=== PATIENT | female | born 1935 | race Caucasian/White ===

== ENCOUNTER → 2019-06-25 09:38 | Outpatient (BNVA) | payer MEDICARE, MEDICAID, SELFPAY | PROVIDERS: Family Provider Family Medicine; PCP Family Medicine; Visit Provider Family Medicine | DX: E87.1 Hypo-osmolality and hyponatremia (principal) | CPT/HCPCS: 80048 ==

== ENCOUNTER → 2019-07-01 09:32 | Outpatient (BNVA) | payer MEDICARE, MEDICAID, SELFPAY | PROVIDERS: Family Provider Family Medicine; PCP Family Medicine; Visit Provider Family Medicine | DX: E87.1 Hypo-osmolality and hyponatremia (principal) | CPT/HCPCS: 80048 ==

== ENCOUNTER → 2019-11-25 08:30 | Outpatient (BNVA) | payer MEDICARE, MEDICAID, SELFPAY | PROVIDERS: Family Provider Family Medicine; PCP Family Medicine; Visit Provider Family Medicine | DX: Z12.31 Encounter for screening mammogram for malignant neoplasm of breast (principal); E11.9 Type 2 diabetes mellitus without complications; E78.5 Hyperlipidemia, unspecified | CPT/HCPCS: 80053; 80061; 83036; 85025 ==

== ENCOUNTER → 2020-04-30 11:24 | Outpatient (BNVA) | payer MEDICARE, MEDICAID, SELFPAY | PROVIDERS: Family Provider Family Medicine; PCP Family Medicine; Visit Provider Family Medicine | DX: E11.9 Type 2 diabetes mellitus without complications (principal) | CPT/HCPCS: 80053; 80061; 83036; 85025 ==

== ENCOUNTER → 2020-08-06 09:24 | Outpatient (BNVA) | payer MEDICARE, MEDICAID, SELFPAY | PROVIDERS: Family Provider Family Medicine; PCP Family Medicine; Visit Provider Family Medicine | DX: E11.9 Type 2 diabetes mellitus without complications (principal) | CPT/HCPCS: 80053; 80061; 83036; 85025 ==

== ENCOUNTER → 2020-11-03 09:31 | Outpatient (BNVA) | payer MEDICARE, MEDICAID, SELFPAY | PROVIDERS: Family Provider Family Medicine; PCP Family Medicine; Visit Provider Family Medicine | DX: E11.9 Type 2 diabetes mellitus without complications (principal); I10 Essential (primary) hypertension | CPT/HCPCS: 80053; 80061; 83036; 85025 ==

== ENCOUNTER → 2021-05-05 08:30 | Outpatient (BNVA) | payer MEDICARE, MEDICAID, SELFPAY | PROVIDERS: Family Provider Family Medicine; PCP Family Medicine; Visit Provider Family Medicine | DX: I10 Essential (primary) hypertension (principal); E11.9 Type 2 diabetes mellitus without complications; E78.2 Mixed hyperlipidemia | CPT/HCPCS: 80053; 80061; 83036; 85025 ==

== ENCOUNTER → 2021-08-09 08:27 | Outpatient (BNVA) | payer MEDICARE, MEDICAID, SELFPAY | PROVIDERS: Family Provider Family Medicine; PCP Family Medicine; Visit Provider Family Medicine | DX: E11.9 Type 2 diabetes mellitus without complications (principal); E78.5 Hyperlipidemia, unspecified; I10 Essential (primary) hypertension | CPT/HCPCS: 80053; 80061; 83036; 85025 ==

== ENCOUNTER → 2022-02-08 08:35 | Outpatient (BNVA) | payer MEDICARE, MEDICAID, SELFPAY | PROVIDERS: Family Provider Family Medicine; PCP Family Medicine; Visit Provider Family Medicine | DX: E78.5 Hyperlipidemia, unspecified (principal); I10 Essential (primary) hypertension; E11.9 Type 2 diabetes mellitus without complications | CPT/HCPCS: 80053; 80061; 83036; 84443; 85025 ==

== ENCOUNTER → 2022-02-16 11:40 | Outpatient (BNVA) | payer MEDICARE, MEDICAID, SELFPAY | PROVIDERS: Family Provider Family Medicine; PCP Family Medicine; Visit Provider Family Medicine | DX: E78.2 Mixed hyperlipidemia (principal); I10 Essential (primary) hypertension; E11.9 Type 2 diabetes mellitus without complications; R89.9 Unspecified abnormal finding in specimens from other organs, systems and tissues; R79.89 Other specified abnormal findings of blood chemistry | CPT/HCPCS: 84439; 84443; 84481 ==

== ENCOUNTER → 2022-08-04 09:00 | Outpatient (BNVA) | payer MEDICARE, MEDICAID, SELFPAY | PROVIDERS: Family Provider Family Medicine; PCP Family Medicine; Visit Provider Family Medicine | DX: I10 Essential (primary) hypertension (principal); E11.9 Type 2 diabetes mellitus without complications; E78.5 Hyperlipidemia, unspecified; R89.9 Unspecified abnormal finding in specimens from other organs, systems and tissues | CPT/HCPCS: 80048; 80061; 83036; 84443; 85025 ==

== ENCOUNTER 2022-11-01 21:27 | Emergency (ER) | payer MEDICARE, MEDICAID, SELFPAY ==
[2022-11-01 21:27] VITALS: BMI 23.3
[2022-11-01 21:31] VITALS: BP 168/84; PULSE 85; RESP 16; TEMP 37.1; O2SAT 98
--- NOTE | 2022-11-01 21:32 | XRR_ITS ---
PROCEDURE INFORMATION: Exam: XR Left Humerus Exam date and time: 11/01/2022 9:37 PM Age: 87 years old Clinical indication: Injury or trauma; Fall; Blunt trauma (contusions or hematomas); Arm, upper; Patient HX: Patient tripped walking upstairs at home and fell. C/O of left arm pain. Arm in makshift sling via EMS. TECHNIQUE: Imaging protocol: Radiologic exam of the left humerus. Views: 2 or more views. COMPARISON: No relevant prior studies available. FINDINGS: Bones/joints: Proximal to mid humerus shows a moderately displaced acute spiral fracture. Diffuse osteopenia. Moderate left shoulder DJD. On the internal rotation view the fracture shows [id number] angulation. Soft tissues: Left upper arm prominent soft tissue swelling. XR/[place] [id number] IMPRESSION: Severe left proximal humeral fracture.
--- NOTE | 2022-11-01 21:32 | CTR_ITS ---
PROCEDURE INFORMATION: Exam: CT Maxillofacial Without Contrast Exam date and time: 11/01/2022 9:42 PM Age: 87 years old Clinical indication: Injury or trauma; Fall; Blunt trauma (contusions or hematomas); Cheek bone; Left TECHNIQUE: Imaging protocol: Computed tomography of the face without contrast. Radiation optimization: All CT scans at this facility use at least one of these dose optimization techniques: automated exposure control; mA and/or kV adjustment per patient size (includes targeted exams where dose is matched to clinical indication); or iterative reconstruction. REPORTING DATA: Count of CT and Cardiac NM exams in prior 12 months: This patient has received 0 known CTs and 0 known cardiac nuclear medicine studies in the 12 months prior to the current study. COMPARISON: CT head wo con* [id number] 11/01/2022 9:39 PM RADIATION DOSE METRICS: Total DLP (mGy-cm): 543 FINDINGS: Orbital cavities: Orbits and globes are unremarkable. Bones/joints: Diffuse osteopenia. No fracture noted. Moderate upper cervical degenerative change. Paranasal sinuses: No significant sinus disease is apparent. Soft tissues: Left cheek injury visualized. Left cheek hematoma measures about 3.5 cm. Vasculature: Advanced diffuse vascular calcification noted. CT/CT facial bones wo con* [id number] IMPRESSION: 1. Left cheek injuries with 3.5 cm hematoma. 2. No definite acute fracture.
--- NOTE | 2022-11-01 21:32 | CTR_ITS ---
PROCEDURE INFORMATION: Exam: CT Head Without Contrast Exam date and time: 11/01/2022 9:39 PM Age: 87 years old Clinical indication: Injury or trauma; Fall; Blunt trauma (contusions or hematomas) TECHNIQUE: Imaging protocol: Computed tomography of the head without contrast. Radiation optimization: All CT scans at this facility use at least one of these dose optimization techniques: automated exposure control; mA and/or kV adjustment per patient size (includes targeted exams where dose is matched to clinical indication); or iterative reconstruction. REPORTING DATA: Count of CT and Cardiac NM exams in prior 12 months: This patient has received 0 known CTs and 0 known cardiac nuclear medicine studies in the 12 months prior to the current study. COMPARISON: No relevant prior studies available. RADIATION DOSE METRICS: Total DLP (mGy-cm): 1011 FINDINGS: Brain: No focal hemorrhage or midline shift is identified. The ventricles and parenchyma show moderate atrophy and chronic bicerebral white matter ischemic change. Cerebral ventricles: No ventriculomegaly or evidence of hydrocephalus. Paranasal sinuses: No evidence of acute sinusitis. Mastoid air cells: Visualized mastoid air cells are well aerated. Bones/joints: No displaced skull fracture is noted. Soft tissues: Left cheek injuries, see same day face CT. Vasculature: Diffuse vascular calcifications are present. CT/CT head wo con* [id number] IMPRESSION: 1. No acute intracranial abnormality. 2. Moderate age-related changes.
--- NOTE | 2022-11-01 21:32 | XRR_ITS ---
PROCEDURE INFORMATION: Exam: XR Left Shoulder Exam date and time: 11/01/2022 9:37 PM Age: 87 years old Clinical indication: Injury or trauma; Fall; Blunt trauma (contusions or hematomas); Shoulder; Patient HX: Patient tripped walking upstairs at home and fell. C/O of left arm pain. Arm in makshift sling via EMS. TECHNIQUE: Imaging protocol: Radiologic exam of the left shoulder. Views: 2 or more views. COMPARISON: No relevant prior studies available. FINDINGS: Bones/joints: Proximal to mid humerus shows a moderately displaced acute spiral fracture. Diffuse osteopenia. Moderate left shoulder DJD. Soft tissues: Left upper arm prominent soft tissue swelling. XR/XR shoulder LT min 2V* [id number] IMPRESSION: Severe left proximal humeral fracture.
--- NOTE | 2022-11-01 21:33 | ED_ITS ---
HPI - Fall General: Chief Complaint: Fall Stated Complaint: FALL Time Seen by Provider: 11/01/22 21:29 Source: patient and EMS Mode of arrival: EMS Limitations: no limitations History of Present Illness: 87-year-old female states that she had tripped and fell while walking tonight she had landed on her left side states she hit the left side of her face does have some facial pain mild headache her main pain is in her left humerus though she believes she may have broke her arm she denies any other injuries denies any neck pain. Associated symptoms-after fall: Reports headache(s); Denies abdominal pain, chest pain or neck pain Review of Systems Const: Denies: fever(s) or chills Eyes: Denies: blurry vision or eye discomfort ENMT: Denies: throat pain or dental pain Card: Denies: chest pain Resp: Denies: dyspnea GI: Denies: abdominal pain, nausea, vomiting or diarrhea Musc: Reports: extremity pain; Denies: neck pain or back pain Skin/Breast: Denies: rash Neuro: Reports: headache(s) PFS ED PFSH: Medical History Diabetes Hyperlipidemia Hypertension Social History Smoking and tobacco status: never smoked Second hand smoke exposure: No Alcohol intake: never Substance/Drug Use: never Caregiver/support person: Yes (family) Lives independently: Yes Household members: none Housing: House Marital status: / service: No Current occupational status: retired Current gender identity: Female Special jeremiah needs: No Agree to transfusion: Yes Physical Exam Const: COMMON NORMALS: no acute distress, patient oriented x3 and healthy appearing HENMT: COMMON NORMALS: normocephalic HEAD & SCALP: normocephalic OTHER: left sided contusion to face Eye: COMMON NORMALS: Equal, round and reactive pupils present and conjunctivae normal CONJUNCTIVA: Yes conjunctivae normal PUPIL: Yes Equal, round and reactive pupils present Neck/C-Spine: COMMON NORMALS: full ROM and supple CERVICAL SPINE: Yes cervical ROM normal, No pain with cervical ROM and No Cervical spine tenderness Chest: COMMONS NORMALS: normal inspection of the chest and normal palpation of entire chest wall Resp: COMMON NORMALS: normal respiratory effort, No retractions, No use of accessory muscles and clear to auscultation bilaterally AUSCULTATION: clear to auscultation bilaterally Cardio: COMMON NORMALS: regular rate, regular rhythm and No murmurs present (Cardio) RATE: regular rate RHYTHM: regular rhythm GI: COMMON NORMALS: Normal to inspection, nondistended, normoactive bowel sounds present, Soft to palpation, non-tender and no masses PALPATION: Yes Soft to palpation Extremity: NARRATIVE EXTREMITY EXAM: Tenderness to left proximal humerus Neuro: COMMON NORMALS: patient oriented x3, moves all extremities and no focal motor deficits Psych: COMMON NORMALS: mental status grossly normal, Normal thought process present and cooperative THOUGHT PROCESS: Normal thought process present Skin: COMMON NORMALS: no rashes or lesions noted and no wounds GENERAL SKIN EXAM: no rashes or lesions noted Course Vital Signs: Vital signs: Vital Signs Temperature 98.7 F 11/01/22 21:31 Pulse Rate 85 11/01/22 21:31 Respiratory Rate 16 11/01/22 21:31 Blood Pressure 168/84 11/01/22 21:31 Pulse Oximetry 98 11/01/22 21:31 Oxygen Delivery Me thod Room Air 11/01/22 21:31 MDM - Fall Medical Decision Making Patient presents here with a left humerus fracture that I interpreted from the x-ray did speak to orthopedics we will place her in a sling get her follow-up orthopedic she has no signs of any neck injury head and facial CTs are normal she is stable for discharge. Medical Records I reviewed the patient's medical records. Lab Data Radiology Impressions Face CT 11/01/22 21:32 IMPRESSION: 1. Left cheek injuries with 3.5 cm hematoma. 2. No definite acute fracture. Head CT 11/01/22 21:32 IMPRESSION: 1. No acute intracranial abnormality. 2. Moderate age-related changes. Humerus X-Ray 11/01/22 21:32 IMPRESSION: Severe left proximal humeral fracture. Shoulder X-Ray 11/01/22 21:32 IMPRESSION: Severe left proximal humeral fracture. Discharge Plan Discharge Patient Disposition: Home Clinical Impression: Closed left humeral fracture Qualifiers: Encounter type: initial encounter Humerus Location: proximal Fracture alignment: displaced Condition: Stable Prescriptions: New hydrocodone-acetaminophen 5-325 mg tablet 1 tab PO Q6H PRN (Reason: pain) Qty: 14 0RF No Action acetaminophen 325 mg tablet 650 mg PO BID PRN irbesartan 300 mg tablet 300 mg PO DAILY Qty: 90 3RF metformin 500 mg tablet See Rx Instructions .ROUTE .COMPLEX Qty: 270 3RF Dose Instruction: TAKE ONE TABLET BY MOUTH THREE TIMES DAILY Rx Instructions: TAKE ONE TABLET BY MOUTH THREE TIMES DAILY ezetimibe [Zetia] 10 mg tablet 10 mg PO DAILY Qty: 90 3RF glipizide 10 mg tablet See Rx Instructions .ROUTE .COMPLEX Qty: 360 3RF Dose Instruction: TAKE TWO TABLETS BY MOUTH TWICE DAILY Rx Instructions: TAKE TWO TABLETS BY MOUTH TWICE DAILY hydrochlorothiazide 25 mg tablet See Rx Instructions .ROUTE .COMPLEX Qty: 90 3RF Dose Instruction: TAKE ONE TABLET BY MOUTH IN THE MORNING Rx Instructions: TAKE ONE TABLET BY MOUTH IN THE MORNING (DME) Truetest Test Strips Strip See Rx Instructions .ROUTE .MEDSUPPLY Qty: 100 4RF Rx Instructions: As directed Discharge Orders: Discharge ED (Routine); Ordered 11/01/22 Ordered By: Simone Todd Referrals: Danielle Aguilar MD [Physician] - 1-3 days Lizbeth Reilly MD [Primary Care Provider] - Discharge Diet: Advance as tolerated Discharge Activity: Resume usual activity Patient Instructions: Arm Fracture in Adults (ED), How to Use a Sling (ED), Opioid Safety Coding Level of Care Code ED Senior Marketing Associate for Belle Aguilar
[2022-11-01 22:30] VITALS: BP 172/85; PULSE 86; RESP 18; O2SAT 98
== END 2022-11-01 22:31 | disposition home or self-care (01) ==
PROVIDERS: Emergency Provider Emergency Medicine; Family Provider Family Medicine; PCP Family Medicine
DX: S42.202A Unspecified fracture of upper end of left humerus, initial encounter for closed fracture (principal); Z79.84 Long term (current) use of oral hypoglycemic drugs; E11.9 Type 2 diabetes mellitus without complications; E78.5 Hyperlipidemia, unspecified; I10 Essential (primary) hypertension; W01.0XXA Fall on same level from slipping, tripping and stumbling without subsequent striking against object, initial encounter
CPT/HCPCS: 70450; 70486; 73030; 73060; 99284

== ENCOUNTER 2022-11-02 15:18 | Outpatient (CLI) | payer MEDICARE, MEDICAID, SELFPAY | END 2022-11-02 15:19 | disposition home or self-care (01) | PROVIDERS: Family Provider Family Medicine; PCP Family Medicine; Visit Provider Specialist | DX: S42.302A Unspecified fracture of shaft of humerus, left arm, initial encounter for closed fracture (principal); W10.9XXA Fall (on) (from) unspecified stairs and steps, initial encounter; Z46.89 Encounter for fitting and adjustment of other specified devices | CPT/HCPCS: 24530; 97760; 99204; L3980 ==

== ENCOUNTER → 2022-11-23 08:45 | Outpatient (BNVA) | payer MEDICARE, MEDICAID, SELFPAY | PROVIDERS: Family Provider Family Medicine; PCP Family Medicine; Visit Provider Specialist | DX: S42.302A Unspecified fracture of shaft of humerus, left arm, initial encounter for closed fracture (principal); X58.XXXA Exposure to other specified factors, initial encounter | CPT/HCPCS: 73060; 99024 ==

== ENCOUNTER → 2022-12-21 10:47 | Outpatient (BNVA) | payer MEDICARE, MEDICAID, SELFPAY | PROVIDERS: Family Provider Family Medicine; PCP Family Medicine; Visit Provider Specialist | DX: S42.342G Displaced spiral fracture of shaft of humerus, left arm, subsequent encounter for fracture with delayed healing (principal); X58.XXXD Exposure to other specified factors, subsequent encounter | CPT/HCPCS: 73060; 99024 ==

== ENCOUNTER → 2023-02-01 10:36 | Outpatient (BNVA) | payer MEDICARE, MEDICAID, SELFPAY | PROVIDERS: Family Provider Family Medicine; PCP Family Medicine; Visit Provider Specialist | DX: S42.342G Displaced spiral fracture of shaft of humerus, left arm, subsequent encounter for fracture with delayed healing; X58.XXXD Exposure to other specified factors, subsequent encounter; S40.011A Contusion of right shoulder, initial encounter; W19.XXXA Unspecified fall, initial encounter | CPT/HCPCS: 73030; 73060; 99213 ==

== ENCOUNTER → 2023-02-03 08:52 | Outpatient (BNVA) | payer MEDICARE, MEDICAID, SELFPAY | PROVIDERS: Family Provider Family Medicine; PCP Family Medicine; Visit Provider Family Medicine | DX: E78.5 Hyperlipidemia, unspecified (principal); I10 Essential (primary) hypertension; E11.9 Type 2 diabetes mellitus without complications | CPT/HCPCS: 80053; 80061; 82607; 83036; 85025 ==

== ENCOUNTER → 2023-03-08 10:07 | Outpatient (BNVA) | payer MEDICARE, MEDICAID, SELFPAY | PROVIDERS: Family Provider Family Medicine; PCP Family Medicine; Visit Provider Specialist | DX: S42.342G Displaced spiral fracture of shaft of humerus, left arm, subsequent encounter for fracture with delayed healing; X58.XXXD Exposure to other specified factors, subsequent encounter | CPT/HCPCS: 73060; 99213 ==

== ENCOUNTER → 2023-08-09 12:06 | Outpatient (BNVA) | payer MEDICARE, MEDICAID, SELFPAY | PROVIDERS: Family Provider Family Medicine; PCP Family Medicine; Visit Provider Family Medicine | DX: E78.2 Mixed hyperlipidemia (principal); E11.9 Type 2 diabetes mellitus without complications; I10 Essential (primary) hypertension | CPT/HCPCS: 80053; 80061; 83036; 84443; 85025 ==

== ENCOUNTER 2023-11-14 21:38 | Emergency (ER) | payer MEDICARE, MEDICAID, SELFPAY ==
[2023-11-14 21:49] VITALS: BP 181/73; PULSE 86; RESP 16; TEMP 36.3; O2SAT 98
[2023-11-14 21:58] LABS: Glucose Point of Care 57 mg/dL (70-110)
--- NOTE | 2023-11-14 22:12 | XRR_ITS ---
PROCEDURE INFORMATION: Exam: XR Chest Exam date and time: 11/14/2023 10:19 PM Age: 88 years old Clinical indication: Other: AMS; Additional info: Weakness TECHNIQUE: Imaging protocol: Radiologic exam of the chest. Views: 1 view. COMPARISON: [place] [id number] 03/08/2023 10:07 AM FINDINGS: Lungs: Unremarkable. No consolidation. Pleural spaces: Unremarkable. No pleural effusion. No pneumothorax. Heart/Mediastinum: Cardiomegaly. 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 Cardiomegaly, negative for infiltrate. 2. 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
[2023-11-14 22:39] LABS: Basophils % 0.4 %; Eosinophils # 0.2 10^3/uL (0.0-0.8); Eosinophils % 2.5 %; Hematocrit 33.1 % (36-47); Lymphocytes % 28.6 %; Mean Corpuscular Hemoglobin 27.5 pg (27-33); Monocytes # 0.4 10^3/uL (0.2-0.9); Neutrophils # 4.42 10^3/uL (1.8-7.7); Neutrophils % 62.2 %; Nucleated Red Blood Cells % 0 %; Platelet Count 255 10^3/cmm (157-399); Red Blood Count 3.85 10^6/uL (3.85-5.65); Red Cell Distribution Width 14.3 % (12.1-15.1); White Blood Count 7.11 10^3/uL (3.29-11.43)
--- NOTE | 2023-11-14 22:40 | W.ED.AMS ---
HPI - Altered Mental Status General: Chief Complaint: Altered Mental Status Stated Complaint: AMS Time Seen by Provider: 11/14/23 22:00 History of Present Illness: 88-year-old female with a history of diabetes who is on glipizide and metformin who presents to the emergency room with an episode of confusion which has since improved. EMS reports her glucose was in the 50s when they got there. Daughter is present in the room now and says that when she called her she was slurring her speech and did not recognize who she was. When she got there she did not have any focal deficits. No facial droop or unilateral weakness. And she has improved as her glucose was come up. No known fevers. She reports no dysuria. No chest pain. No abdominal pain. She also does not note that she has missed any meals or anything like that. Review of Systems Narrative: Constitutional symptoms: Negative except as documented in HPI. Skin symptoms: Negative except as documented in HPI. Eye symptoms: Negative except as documented in HPI. ENMT symptoms: Negative except as documented in HPI. Respiratory symptoms: Negative except as documented in HPI. Cardiovascular symptoms: Negative except as documented in HPI. Gastrointestinal symptoms: Negative except as documented in HPI. Genitourinary symptoms: Negative except as documented in HPI. Musculoskeletal symptoms: Negative except as documented in HPI. Neurologic symptoms: Negative except as documented in HPI. Psychiatric symptoms: Negative except as documented in HPI. Endocrine symptoms: Negative except as documented in HPI. [facility] ED PFSH: Medical History Hyperlipidemia Diabetes Hypertension Social History Smoking and tobacco/nicotine status: never used tobacco/nicotine Second hand smoke exposure: No Alcohol intake: never Substance/Drug Use: never Caregiver/support person: Yes (family) Lives independently: Yes Household members: none Housing: House Marital status: / service: No Current occupational status: retired Current gender identity: Female Special jeremiah needs: No Agree to transfusion: Yes Physical Exam Narrative: General: Alert, no acute distress. Skin: Warm, dry. Head: Normocephalic, atraumatic. Neck: Supple, trachea midline. Eye: Extraocular movements are intact. Ears, nose, mouth and throat: mucosa moist. Cardiovascular: Regular, Normal peripheral perfusion. Respiratory: Lungs are clear to auscultation, respirations are non-labored, breath sounds are equal, Symmetrical chest wall expansion. Gastrointestinal: Soft, Nontender, Non distended, Normal bowel sounds. Musculoskeletal: Normal ROM, no deformity. Neurological: Alert and oriented, No focal neurological deficit observed. Psychiatric: Cooperative, appropriate mood & affect. Course Vital Signs: Vital signs: Vital Signs Temperature 97.4 F L 11/14/23 21:49 Pulse Rate 84 11/14/23 23:28 Respiratory Rate 16 11/14/23 23:28 Blood Pressure 181/73 11/14/23 21:49 Pulse Oximetry 98 11/14/23 23:28 Oxygen Delivery Me thod Room Air 11/14/23 23:28 MDM - Altered Mental Status Medical Decision Making Medical decision making: Differential diagnosis for the patient with hyperglycemia would include but not be limited to and would be based on the above HPI review of systems and physical exam: DKA. Dehydration. Renal failure. Concern for electrolyte abnormalities. Concern for underlying infection that might result in hyperglycemia. Medical non-compliance. Orders placed to evaluate differential diagnosis of the patient with hyperglycemia are based on the above differential, HPI and physical exam. Lab Review: Laboratory results were reviewed and interpreted by myself the emergency room physician. No leukocytosis. Hemoglobin is 10.6. BUN and creatinine are 21 and 0.9. Her urinalysis is significant for infection. She is 15-25 whites. I reviewed the patient's medical record. Reexamination: Patient remained stable. She has had no altered mental status here. Her glucose is come back up with food. Discharge glucoses in the 160s. Assessment and plan: Hypoglycemia Urinary tract infection Mild dehydration ? Rocephin and IV bolus in the emergency room - Discharged home - Discussed plan with patient. Answered any questions. - Evaluation and treatment of this problem were appropriate in the emergency setting. Lab Data 11/14/23 22:26 11/14/23 22:26 Radiology Impressions Chest X-Ray 11/14/23 22:12 IMPRESSION: 1. Cardiomegaly, negative for infiltrate. 2. 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 extending off the field of view Laboratory Results WBC 7.11 10^3/uL (3.29-11.43) 11/14/23 22:26 RBC 3.85 10^6/uL (3.85-5.65) 11/14/23 22: Hgb 10.60 g/dL (11.27-16.99) L 11/14/23 22: Hct 33.1 % (36-47) L 11/14/23 22: MCV 86.0 fl (85-98) 11/14/23 22:26 MCH 27.5 pg (27-33) 11/14/23 22: MCHC 32.0 g/dL (30-55) 11/14/23 22: RDW 14.3 % (12.1-15.1) 11/14/23 22: Plt Count 255 10^3/cmm (157-399) 11/14/23 22: MPV 10.0 fL (7.4-10.4) 11/14/23 22: Neut % (Auto) 62.2 % 11/14/23 22: Lymph % (Auto) 28.6 % 11/14/23 22: [place] % (Auto) 6.0 % 11/14/23 22: Eos % (Auto) 2.5 % 11/14/23 22:26 Baso % (Auto) 0.4 % 11/14/23 22: Neut # (Auto) 4.42 10^3/uL (1.8-7.7) 11/14/23 22: Lymph # (Auto) 2.0 10^3/uL (0.8-4.8) 11/14/23 22:26 [place] # (Auto) 0.4 10^3/uL (0.2-0.9) 11/14/23 22: Eos # (Auto) 0.2 10^3/uL (0.0-0.8) 11/14/23 22: Baso # (Auto) 0.0 10^3/uL (0.0-0.1) 11/14/23: Nucleated RBC % (auto) 0 % 11/14/23: Nucleated RBCs # 0.0 /100WBC 11/14/23 22:26 Sodium 130 mmol/L (136-145) L 11/14/23 22:26 Potassium 4.0 mmol/L (3.5-5.1) 11/14/23 22:26 Chloride 91 mmol/L (98-107) L 11/14/23 22:26 Carbon Dioxide 26 mmol/L (22-29) 11/14/23 22:26 Anion Gap 17.0 (5-19) 11/14/23 22:26 BUN 21 mg/dL (8-23) 11/14/23 22:26 Creatinine 0.9 mg/dL (0.5-0.9) 11/14/23 22:26 GFR Calculation Not Reportable 11/14/23 22:26 Glucose 65 mg/dL (65-115) 11/14/23 22:26 POC Glucose 161 mg/dL (70-110) H 11/14/23 23:31 Calculated Osmolality 271 mOsm/kg (285-295) L 11/14/23 22:26 Calcium 9.1 mg/dL (8.5-10.5) 11/14/23 22:26 Total Bilirubin 0.2 mg/dL (0.15-1.2) 11/14/23 22:26 AST 14 U/L (0-32) 11/14/23 22:26 ALT 13 U/L (0-33) 11/14/23 22:26 Alkaline Phosphatase 82 U/L (35-105) 11/14/23 22:26 Total Protein 7.9 g/dL (6.6-8.7) 11/14/23 22:26 Albumin 3.9 g/dL (3.5-5.2) 11/14/23 22:26 Globulin 4.0 g/dL (1.3-4.6) 11/14/23 22:26 Urine Color Yellow (Yellow) 11/14/23 22:55 Urine Appearance Clear (CLEAR) 11/14/23 22:55 Urine pH 6 (5-7) 11/14/23 22:55 Ur Specific [place] 1.010 (1.005-1.030) 11/14/23 22:55 Urine Protein Neg (Negative) 11/14/23 22:55 Urine Glucose (UA) Norm (Normal) 11/14/23 22:55 Urine Ketones Negative (Negative) 11/14/23 22:55 Urine Blood Neg (Negative) 11/14/23 22:55 Urine Nitrate Negative (Negative) 11/14/23 22:55 Urine Bilirubin Neg (Negative) 11/14/23 22:55 Urine Urobilinogen Neg mg/dL (Negative) 11/14/23 22:55 Ur Leukocyte Esterase 1+ (Negative) H 11/14/23 22:55 Urine RBC 0-4 /hpf (0-2) H 11/14/23 22:55 Urine WBC 15-25 /hpf (0-5) H 11/14/23 22:55 Ur Squamous Epith Cells 0-4 /hpf (0-5) H 11/14/23 22:55 Amorphous Sediment Not Reportable 11/14/23 22:55 Urine Bacteria Trace /hpf (NONE) 11/14/23 22:55 No radiology studies performed this visit Discharge Plan Discharge Patient Disposition: Home Clinical Impression: Hypoglycemia Urinary tract infection Qualifiers: Urinary tract infection type: acute cystitis Hematuria presence: without hematuria Qualified Code(s): N30.00 - Acute cystitis without hematuria Condition: Stable Prescriptions: New cefdinir 300 mg capsule 300 mg PO BID 7 Days Qty: 14 0RF No Action acetaminophen 325 mg tablet 650 mg PO BID PRN (DME) Humeral Fracture Brace See Rx Instructions .Route .MEDSUPPLY Qty: 1 0RF Rx Instructions: As directed ezetimibe [Zetia] 10 mg tablet 10 mg PO DAILY Qty: 90 3RF glipizide 10 mg tablet See Rx Instructions .ROUTE .COMPLEX Qty: 360 3RF Dose Instruction: TAKE TWO TABLETS BY MOUTH TWICE DAILY Rx Instructions: TAKE TWO TABLETS BY MOUTH TWICE DAILY hydrochlorothiazide 25 mg tablet See Rx Instructions .ROUTE .COMPLEX Qty: 90 3RF Dose Instruction: TAKE ONE TABLET BY MOUTH IN THE MORNING Rx Instructions: TAKE ONE TABLET BY MOUTH IN THE MORNING irbesartan 300 mg tablet 300 mg PO DAILY Qty: 90 3RF metformin 500 mg tablet See Rx Instructions .ROUTE .COMPLEX Qty: 270 3RF Dose Instruction: TAKE ONE TABLET BY MOUTH THREE TIMES DAILY Rx Instructions: TAKE ONE TABLET BY MOUTH THREE TIMES DAILY (DME) Truetest Test Strips Strip See Rx Instructions .ROUTE .MEDSUPPLY Qty: 100 4RF Rx Instructions: As directed hydrocodone-acetaminophen 5-325 mg tablet 1 tab PO Q6H PRN (Reason: pain) Qty: 14 0RF Discharge Orders: Discharge ED (Routine); Ordered 11/14/23 Ordered By: Perla Rodrigues Referrals: Lizbeth Reilly MD [Primary Care Provider] - 1-3 days Discharge Diet: Usual diet Discharge Activity: Increase activity as tolerated Patient Instructions: Hypoglycemia, Urinary Tract Infection in Older Adults (ED) Activity Restrictions/Additional Instructions: Thank you for choosing [facility] for your healthcare needs today. Please realize this is an emergency room and that we are providing you with a medical screening exam and this may not be complete and all inclusive of all the testing and or work up that you may need to determine your ailment or severity of your illness. You have been screened and evaluated and felt safe for discharge. Health conditions do change or evolve sometimes and as such it is important that you follow up with your Primary Doctor to be re checked, 3-5 days is a general good time frame for follow up. You are always welcome to return to the ED for re assessment if your symptoms are worsening or you have new concerns Coding Level of Care Code ED It Applications Analyst for Belle Aguilar
[2023-11-14 22:43] VITALS: PULSE 79; RESP 16; O2SAT 100
[2023-11-14 22:52] LABS: Albumin Level 3.9 g/dL (3.5-5.2); Chloride 91 mmol/L (98-107); Sodium 130 mmol/L (136-145)
[2023-11-14 23:06] LABS: Alanine Aminotransferase 13 U/L (0-33); Alkaline Phosphatase 82 U/L (35-105); Aspartate Amino Transferase 14 U/L (0-32); Blood Urea Nitrogen 21 mg/dL (8-23); Calcium 9.1 mg/dL (8.5-10.5); Carbon Dioxide 26 mmol/L (22-29); Creatinine Clr Calc Pharmacy 42.8601; Glucose 65 mg/dL (65-115); Osmolality Calculated 271 mOsm/kg (285-295); Total Bilirubin 0.2 mg/dL (0.15-1.2); Total Protein 7.9 g/dL (6.6-8.7)
[2023-11-14 23:10] LABS: Bacteria Urine TRACE /hpf; Bilirubin Urine Neg (Negative); Blood Urine Neg (Negative); Glucose Urine UA Norm (Normal); Ketones Urine Negative (Negative); Leukocyte Esterase Urine 1+ (Negative); Nitrate Urine Negative (Negative); Protein Urine Neg (Negative); RBC Urine 0-4 /hpf (0-2); Squamous Epithelial Cell Urine 0-4 /hpf (0-5); Urine Appearance Clear (CLEAR); Urine Color Yellow (Yellow); Urobilinogen Urine Neg (Negative); WBC Urine 15-25 /hpf (0-5); pH Urine 6 (5-7)
[2023-11-14 23:11] LABS: Add Urine Culture? Yes
[2023-11-14] MEDS: cefTRIAXone 1,000 MG in sodium chloride 0.9% (plus) 50 ML 100 MG IV (23:26)
[2023-11-14] MEDS: sodium chloride 0.9% 500 ML 999 ML IV (23:26)
[2023-11-14 23:28] VITALS: PULSE 84; RESP 16; O2SAT 98
--- NOTE | 2023-11-14 23:32 | PC.NURSE ---
Blood sugar re-checked per instruction of Dr Rodrigues. Results communicated to physician, no further orders received at this time.
[2023-11-14 23:34] LABS: Glucose Point of Care 161 mg/dL (70-110)
[2023-11-15 00:08] VITALS: PULSE 86; RESP 18; O2SAT 99
[2023-11-15 00:09] VITALS: PULSE 86; RESP 16; O2SAT 99
== END 2023-11-14 23:59 | disposition home or self-care (01) ==
PROVIDERS: Emergency Provider Emergency Medicine; PCP Family Medicine
DX: N30.00 Acute cystitis without hematuria (principal); E11.649 Type 2 diabetes mellitus with hypoglycemia without coma; Z79.84 Long term (current) use of oral hypoglycemic drugs; E78.5 Hyperlipidemia, unspecified; E11.9 Type 2 diabetes mellitus without complications; I10 Essential (primary) hypertension
CPT/HCPCS: 36416; 71045; 80053; 81001; 82962; 85025; 87086; 96374; 99284; J0696; J7040

== ENCOUNTER → 2023-11-22 14:48 | Outpatient (BNVA) | payer MEDICARE, MEDICAID, SELFPAY | PROVIDERS: PCP Family Medicine; Visit Provider Family Medicine | DX: N39.0 Urinary tract infection, site not specified (principal) | CPT/HCPCS: 81000 ==

== ENCOUNTER → 2024-02-07 08:26 | Outpatient (BNVA) | payer MEDICARE, MEDICAID, SELFPAY | PROVIDERS: PCP Family Medicine; Visit Provider Family Medicine | DX: E11.9 Type 2 diabetes mellitus without complications (principal) | CPT/HCPCS: 80053; 80061; 83036; 85025 ==

== ENCOUNTER 2024-06-26 13:11 | Emergency (ER) | payer MEDICARE, MEDICAID, SELFPAY ==
[2024-06-26 13:12] VITALS: BP 189/73; PULSE 82; RESP 16; TEMP 36.7; O2SAT 98; BMI 25.0
--- NOTE | 2024-06-26 14:44 | ECG_ITS ---
[facility] [place] [facility] Date: 2024-06-26 Pat Name: Sheila Oliver Department: Room: Gender: Female Dock Associate: : 1935 Requested By: Hiram Jurado Order Number: [id number] Reading MD: DAGMAR WILHELM Measurements Intervals [place] Rate: 71 P: 52 FL: 162 QRS: 49 QRSD: 78 T: 71 QT: 399 QTc: 434 Interpretive Statements SINUS RHYTHM No previous ECG available for comparison Electronically Signed On 06-28-2024 23:29:21 MOLD PREPARER by DAGMAR WILHELM [email or web address]
--- NOTE | 2024-06-26 14:44 | XRR_ITS ---
PROCEDURE INFORMATION: Exam: XR Chest Exam date and time: 06/26/2024 3:12 PM Age: 89 years old Clinical indication: Cough and dyspnea and shortness of breath; Additional info: Dyspnea/cough TECHNIQUE: Imaging protocol: Radiologic exam of the chest. Views: 1 view. COMPARISON: CR XR chest 1V portable [id number] 11/14/2023 10:19 PM FINDINGS: Lungs: Unremarkable. No consolidation. Pleural spaces: Small volume left pleural effusion. No pneumothorax. Heart/Mediastinum: Mild cardiomegaly. Bones/joints: Chronic fracture deformity of the proximal left humeral shaft. XR/XR chest 1V portable [id number] IMPRESSION: Mild cardiomegaly with small volume left pleural effusion.
--- NOTE | 2024-06-26 15:05 | W.ED.GENADLT ---
HPI - General Adult General: Chief complaint: General Medical Stated complaint: high BP Time Seen by Provider: 06/26/24 14:41 History of Present Illness: 89-year-old female presents emergency room with complaint of labile blood pressures. Time she has blood pressures up in the 200s and other times it will drop down into the 1 40-50 range. She has had some mild headache she denies any difficulty speech swallowing or gait. She has not had any vision changes. No chest pain or shortness of breath denies all other symptoms Associated symptoms: Deny chest pain, dyspnea or rash Related Data Home Medications Medication Instructions Recorded Confirmed acetaminophen 325 mg tablet 650 mg PO BID PRN Pain 07/08/19 06/26/24 ferrous gluconate 324 mg (38 mg 324 mg PO DAILY 06/26/24 06/26/24 iron) tablet glipizide 10 mg tablet 20 mg PO BID 06/26/24 06/26/24 hydrochlorothiazide 25 mg tablet 25 mg PO QAM 06/26/24 06/26/24 metformin 500 mg tablet 500 mg PO TID 06/26/24 06/26/24 nebivolol 10 mg tablet 10 mg PO QAM 06/26/24 06/26/24 Previous Rx's Medication Instructions Recorded Humeral Fracture Brace #1 ea 11/02/22 irbesartan 300 mg tablet 300 mg PO DAILY #90 tabs 02/14/24 blood sugar diagnostic (True #100 ea 04/03/24 Metrix Glucose Test Strip) amlodipine 2.5 mg tablet 2.5 mg PO DAILY #30 tabs 06/26/24 Allergies Allergy/AdvReac Type Severity Reaction Status Date / Time memantine [From Namenda] AdvReac Mild ADR-Dizzine Verified 02/29/24 11:27 ss Review of Systems Const: Denies: fever(s) or chills Card: Denies: chest pain Resp: Denies: dyspnea GI: Denies: abdominal pain : Denies: dysuria, urinary frequency or urinary urgency Musc: Denies: neck pain or back pain Skin/Breast: Denies: rash PFS ED PFSH: Medical History Enrolled in chronic care management Hyperlipidemia Diabetes Hypertension Social History Smoking and tobacco/nicotine status: never used tobacco/nicotine Second hand smoke exposure: No Alcohol intake: never Substance/Drug Use: never Caregiver/support person: Yes (family) Lives independently: Yes Household members: none Housing: House Marital status: / service: No Current occupational status: retired Current gender identity: Female Special jeremiah needs: No Agree to transfusion: Yes Physical Exam Const: COMMON NORMALS: no acute distress GENERAL APPEARANCE: cooperative and comfortable ORIENTATION/CONSCIOUSNESS: Yes awake, Yes oriented to person, Yes oriented to place and Yes oriented to time HENMT: COMMON NORMALS: normocephalic, atraumatic and hearing grossly normal bilaterally HEAD & SCALP: normocephalic and atraumatic Resp: COMMON NORMALS: normal respiratory effort, No retractions, No use of accessory muscles and clear to auscultation bilaterally AUSCULTATION: clear to auscultation bilaterally Cardio: COMMON NORMALS: regular rate, regular rhythm and No murmurs present (Cardio) RATE: regular rate RHYTHM: regular rhythm GI: COMMON NORMALS: Soft to palpation and No hepatosplenomegaly present AUSCULTATION: Yes normoactive bowel sounds PALPATION: Yes Soft to palpation, No Tenderness to palpation present (GI), No Guarding due to palpation present (GI) and Yes No hepatosplenomegaly present Extremity: COMMON NORMALS: normal to inspection, capillary refill normal, no clubbing, cyanosis or edema, no calf tenderness and no pedal edema Neuro: SENSORIUM/ORIENTATION: Yes oriented to person, Yes oriented to place and Yes oriented to time Skin: COMMON NORMALS: no rashes or lesions noted GENERAL SKIN EXAM: no rashes or lesions noted Course Vital Signs: Vital signs: Vital Signs Temperature 98.0 F 06/26/24 13:12 Pulse Rate 91 06/26/24 18:11 Respiratory Rate 16 06/26/24 13:12 Blood Pressure 192/84 06/26/24 18:11 Pulse Oximetry 98 06/26/24 18:11 Oxygen Delivery Me thod Room Air 06/26/24 16:06 [facility] - General Adult Medical Decision Making Patient presents with elevated blood pressure. She is given metoprolol and losartan. He has no focal neurologic deficits will discharge her home with amlodipine 2.5 mg in addition to her current medications. Follow-up with her primary care doctor within the week Medical Records I reviewed the patient's medical records. Lab Data I reviewed the patient's lab results. 06/26/24 15:06/26/24: Radiology Impressions Chest X-Ray 06/26/24 14:44 IMPRESSION: Mild cardiomegaly with small volume left pleural effusion. Laboratory Results WBC 6.00 10^3/uL (3.29-11.43) 06/26/24 RBC 4.04 10^6/uL (3.85-5.65) 06/26/24 Hgb 10.90 g/dL (11.27-16.99) L 06/26/24 Hct 35.0 % (36-47) L 06/26/24 MCV 86.6 fl (85-98) 06/26/24 MCH 27.0 pg (27-33) 06/26/24 MCHC 31.1 g/dL (30-55) 06/26/24 RDW 14.6 % (12.1-15.1) 06/26/24 Plt Count 213 10^3/cmm (157-399) 06/26/24 MPV 10.4 fL (7.4-10.4) 06/26/24 Neut % (Auto) 57.6 % 06/26/24 Lymph % (Auto) 32.8 % 06/26/24 [place] % (Auto) 5.8 % 06/26/24 Eos % (Auto) 3.0 % 06/26/24 Baso % (Auto) 0.5 % 06/26/24 Neut # (Auto) 3.45 10^3/uL (1.8-7.7) 06/26/24 Lymph # (Auto) 2.0 10^3/uL (0.8-4.8) 06/26/24 [place] # (Auto) 0.4 10^3/uL (0.2-0.9) 06/26/24 Eos # (Auto) 0.2 10^3/uL (0.0-0.8) 06/26/24 Baso # (Auto) 0.0 10^3/uL (0.0-0.1) 06/26/24 15: Nucleated RBC % (auto) 0 % 06/26/24: Nucleated RBCs # 0.0 /100WBC 06/26/24 15: Sodium 134 mmol/L (136-145) L 06/26/24: Potassium 4.2 mmol/L (3.5-5.1) 06/26/24: Chloride 95 mmol/L (98-107) L 06/26/24: Carbon Dioxide 26 mmol/L (22-29) 06/26/24: Anion Gap 17.2 (5-19) 06/26/24: BUN 19 mg/dL (8-23) 06/26/24: Creatinine 0.9 mg/dL (0.5-0.9) 06/26/24: GFR Calculation Not Reportable 06/26/24 Glucose 229 mg/dL (65-115) H 06/26/24 Calculated Osmolality 288 mOsm/kg (285-295) 06/26/24 Calcium 9.2 mg/dL (8.5-10.5) 06/26/24: Total Bilirubin 0.2 mg/dL (0.15-1.2) 06/26/24: AST 16 U/L (0-32) 06/26/24: ALT 16 U/L (0-33) 06/26/24: Alkaline Phosphatase 102 U/L (35-105) 06/26/24: Total Protein 7.0 g/dL (6.6-8.7) 06/26/24: Albumin 3.7 g/dL (3.5-5.2) 06/26/24: Globulin 3.3 g/dL (1.3-4.6) 06/26/24: All radiology interpretation(s) finalized by discharge Discharge Plan Discharge Patient Disposition: Home Clinical Impression: Pleural effusion on left Hypertension Qualifiers: Hypertension type: essential hypertension Qualified Code(s): I10 - Essential (primary) hypertension Condition: Stable Prescriptions: New amlodipine 2.5 mg tablet 2.5 mg PO DAILY Qty: 30 0RF No Action acetaminophen 325 mg tablet 650 mg PO BID PRN (Reason: Pain) (DME) Humeral Fracture Brace See Rx Instructions .Route .MEDSUPPLY Qty: 1 0RF Rx Instructions: As directed irbesartan 300 mg tablet 300 mg PO DAILY Qty: 90 3RF (DME) True Metrix Glucose Test Strip Strip See Rx Instructions .ROUTE .COMPLEX Qty: 100 4RF Dose Instruction: USE DIRECTED TO test ONCE daily Rx Instructions: USE DIRECTED TO test ONCE daily ferrous gluconate 324 mg (38 mg iron) tablet 324 mg PO DAILY nebivolol 10 mg tablet 10 mg PO QAM metformin 500 mg tablet 500 mg PO TID Rx Instructions: TAKE ONE TABLET BY MOUTH THREE TIMES DAILY glipizide 10 mg tablet 20 mg PO BID Rx Instructions: TAKE TWO TABLETS BY MOUTH TWICE DAILY hydrochlorothiazide 25 mg tablet 25 mg PO QAM Rx Instructions: TAKE ONE TABLET BY MOUTH IN THE MORNING Discharge Orders: Discharge ED (Routine); Ordered 06/26/24 Ordered By: Hiram Harrison Referrals: Lizbeth Reilly MD [Primary Care Provider] - Discharge Diet: Usual diet Discharge Activity: Increase activity as tolerated Patient Instructions: Opioid Safety, Pain Management Activity Restrictions/Additional Instructions: Thank you for choosing [facility] for your healthcare needs today. It is very important that you follow up as instructed or that you return to the Emergency Department should you have concerns or if your condition changes or worsens in any way. You were seen in the emergency room with complaints of fluctuations in blood pressure your blood pressure was high at times emergency room recommend you continue your current medications and add amlodipine 2.5 mg once daily. Follow-up with your primary care doctor within the next week to reevaluate your blood pressure and make further adjustments as needed Coding Level of Care Code ED [employer] for Belle Aguilar
[2024-06-26 15:08] VITALS: BP 148/72
[2024-06-26 15:41] LABS: Basophils % 0.5 %; Eosinophils # 0.2 10^3/uL (0.0-0.8); Lymphocytes % 32.8 %; Mean Corpuscular HGB Conc 31.1 g/dL (30-55); Mean Corpuscular Volume 86.6 fl (85-98); Mean Platelet Volume 10.4 fL (7.4-10.4); Monocytes # 0.4 10^3/uL (0.2-0.9); Monocytes % 5.8 %; Neutrophils # 3.45 10^3/uL (1.8-7.7); Neutrophils % 57.6 %; Nucleated Red Blood Cells % 0 %; Platelet Count 213 10^3/cmm (157-399); Red Blood Count 4.04 10^6/uL (3.85-5.65); Red Cell Distribution Width 14.6 % (12.1-15.1)
[2024-06-26 15:57] VITALS: BP 162/75; PULSE 72; O2SAT 98
[2024-06-26 16:01] LABS: Alanine Aminotransferase 16 U/L (0-33); Albumin Level 3.7 g/dL (3.5-5.2); Alkaline Phosphatase 102 U/L (35-105); Anion Gap 17.2 (5-19); Aspartate Amino Transferase 16 U/L (0-32); Blood Urea Nitrogen 19 mg/dL (8-23); Calcium 9.2 mg/dL (8.5-10.5); Carbon Dioxide 26 mmol/L (22-29); Chloride 95 mmol/L (98-107); Creatinine Clr Calc Pharmacy 42.6971; Globulin 3.3 g/dL (1.3-4.6); Glucose 229 mg/dL (65-115); Osmolality Calculated 288 mOsm/kg (285-295); Potassium 4.2 mmol/L (3.5-5.1); Sodium 134 mmol/L (136-145); Total Bilirubin 0.2 mg/dL (0.15-1.2)
[2024-06-26 16:06] VITALS: BP 157/68; PULSE 71; O2SAT 97
[2024-06-26 18:11] VITALS: BP 192/84; PULSE 91; O2SAT 98
[2024-06-26] MEDS: losartan 50 mg Tablet 100 MG PO (18:11)
[2024-06-26] MEDS: metoprolol tartrate 25 mg Tablet PO (18:11)
== END 2024-06-26 18:12 | disposition home or self-care (01) ==
PROVIDERS: Emergency Provider Family Medicine; PCP Family Medicine
DX: J90 Pleural effusion, not elsewhere classified (principal); I10 Essential (primary) hypertension; Z79.84 Long term (current) use of oral hypoglycemic drugs; E11.9 Type 2 diabetes mellitus without complications; E78.5 Hyperlipidemia, unspecified
CPT/HCPCS: 36415; 71045; 80053; 85025; 93005; 99285